=== PATIENT | male | born 1965 | race Caucasian/White ===

== ENCOUNTER 2017-11-09 22:09 | Observation (INO) | payer MEDICAID, OTHER ==
[~2017-11-09] VITALS: Ht 182.9 cm; Wt 92.0 kg
[2017-11-09] MEDS ORDERED: IOHEXOL 350 MG/ML 10 ML VIAL (for RAD DIAG) IVCONTRAST ONE (22:10)
[2017-11-09 22:16] VITALS: BP 196/105; PULSE 57; RESP 18; TEMP 97.5; O2SAT 98
[2017-11-09] MEDS ORDERED: SODIUM CHLORIDE 0.9% FLUSH 10 ML FLUSH IVF PRN (23:00)
[2017-11-09] MEDS ORDERED: SODIUM CHLORID 0.9% 500 ML INJ 500 ML IV ONE (23:00)
[2017-11-09] MEDS ORDERED: ASPIRIN 81 MG CHEW TAB PO ONE (23:00)
[2017-11-09 23:09] VITALS: BP 148/98; O2SAT 100
--- NOTE | 2017-11-09 23:22 | RADRPT ---
EXAM DATE/TIME: 11/09/2017 23:06 [facility] COMPARISON: No previous studies available for comparison. INDICATIONS : Chest pressure. MEDICAL HISTORY : Hypertension. SURGICAL HISTORY : CABG. ENCOUNTER: Initial ACUITY: 1 day PAIN SCORE: 5/10 LOCATION: Bilateral chest FINDINGS: PA and lateral views of the chest demonstrate the lungs to be symmetrically aerated without evidence of mass, infiltrate or effusion. The cardiomediastinal contours are unremarkable. Osseous structure s are intact. CONCLUSION: 1. No active disease. Postoperative median sternotomy and CABG. Crow Cazares MD on November 09, 2017 at 23:18 Board Certified Radiologist. This report was verified electronically.
[2017-11-09 23:33] LABS: AUTOMATED NEUTROPHIL # 5.4 TH/MM3 (1.8-7.7); BASOPHIL # 0.1 TH/MM3 (0-0.2); BASOPHIL % 0.7 % (0.0-2.0); EOSINOPHIL # 0.5 TH/MM3 (0-0.4); EOSINOPHIL % 4.8 % (0.0-4.0); HEMATOCRIT 41.9 % (39.0-51.0); HEMOGLOBIN 14.2 GM/DL (13.0-17.0); LYMPH % 28.9 % (9.0-44.0); LYMPHOCYTE # 2.7 TH/MM3 (1.0-4.8); MEAN CORPUSCULAR HEMOGLOBIN 28.2 PG (27.0-34.0); MEAN PLATELET VOLUME 8.4 FL (7.0-11.0); MONO % 8.1 % (0.0-8.0); MONOCYTE # 0.8 TH/MM3 (0-0.9); NEUT % 57.5 % (16.0-70.0); PLATELET COUNT 296 TH/MM3 (150-450); RED BLOOD COUNT 5.04 MIL/MM3 (4.50-5.90); RED CELL DISTRIBUTION WIDTH 15.5 % (11.6-17.2); WHITE BLOOD COUNT 9.4 TH/MM3 (4.0-11.0)
[2017-11-09 23:46] LABS: ALT (GPT) 148 U/L (12-78)
[2017-11-09 23:49] LABS: D-DIMER 0.56 MG/L FEU (0.00-0.50)
[2017-11-09 23:50] LABS: ALKALINE PHOSPHATASE 98 U/L (45-117); TOTAL BILIRUBIN ADULT 0.5 MG/DL (0.2-1.0); TOTAL PROTEIN 8.3 GM/DL (6.4-8.2); TROPONIN I LESS THAN 0.02 NG/ML (0.02-0.05)
[2017-11-09 23:55] LABS: ALBUMIN 4.2 GM/DL (3.4-5.0); AST (GOT) 61 U/L (15-37); BICARBONATE 29.7 MEQ/L (21.0-32.0); BLOOD UREA NITROGEN 12 MG/DL (7-18); CALCIUM 8.7 MG/DL (8.5-10.1); CHLORIDE 106 MEQ/L (98-107); CREATININE 1.13 MG/DL (0.60-1.30); GLOMERULAR FILTRATION RATE 68 ML/MIN (>89); GLUCOSE,RANDOM 89 MG/DL (74-106); MAGNESIUM 2.1 MG/DL (1.5-2.5); SODIUM (NA) 139 MEQ/L (136-145)
--- NOTE | 2017-11-10 00:06 | PD ---
HPI Chief Complaint: Chest Pain Time Seen by Provider: 22:46 Travel History International Travel<30 days: No Contact w/Intl Traveler<30days: No Traveled to known affect area: No History of Present Illness HPI Is a 52-year-old man presents to the emergency department complaining of pressure-like chest discomfort ongoing for the past couple days. Patient had an ME about 5 months ago, and required quadruple bypass. He has done generally well since then. He drove down is visiting from [place]. Over the past several days he knows his diastolic blood pressures been a little bit increased. Been feeling more tired and getting chest pressure when this happens. Usually more towards the end of the day. It was worse today and so he came to the emergency department. He otherwise had been feeling generally well and healthy and doing well since his CABG. History Past Medical History Narrative Medical CAD, history CABG Hypertension Hyperlipidemia Tetanus Vaccination: Unknown Influenza Vaccination: No Social History Alcohol Use: No Tobacco Use: No Allergies-Medications (Allergen,Severity, Reaction): Coded Allergies: No Known Allergies (Unverified , 11/09/17) Review of Systems Except as stated in HPI: all other systems reviewed are Neg Physical Exam Narrative GENERAL: Well-appearing 51-year-old man, no acute distress SKIN: Focused skin assessment warm/dry. HEAD: Atraumatic. Normocephalic. EYES: Pupils equal and round. No scleral icterus. No injection or drainage. ENT: No nasal bleeding or discharge. Mucous membranes pink and moist. NECK: Trachea midline. No JVD. CARDIOVASCULAR: Regular rate and rhythm. No murmur appreciated. RESPIRATORY: No accessory muscle use. Clear to auscultation. Breath sounds equal bilaterally. GASTROINTESTINAL: Abdomen soft, non-tender, nondistended. Hepatic and splenic margins not palpable. MUSCULOSKELETAL: No obvious deformities. No clubbing. No cyanosis. No edema. NEUROLOGICAL: Awake and alert. No obvious cranial nerve deficits. Motor grossly within normal limits. Normal speech. PSYCHIATRIC: Appropriate mood and affect; insight and judgment normal. Data Data Last Documented VS Vital Signs Date Time Temp Pulse Resp B/P (MAP) Pulse Ox O2 Delivery O2 Flow Rate FiO2 11/09/17 23:09 100 Room Air 11/09/17 23:09 148/98 (115) 11/09/17 22:16 97.5 57 18 Orders Orders Electrocardiogram (11/09/17:52) Complete Blood Count With Diff (11/09/17:52) Comprehensive Metabolic Panel (11/09/17:52) D-Dimer (11/09/17:) Magnesium (Mg) (11/09/17:52) Prothrombin Time / Inr (Pt) (11/09/17:52) Act Partial Throm Time (Ptt) (11/09/17:52) Troponin I (11/09/17:) Lipase (11/09/17:52) Ecg Monitoring (11/09/17:52) Bilateral Bp Monitoring (11/09/17:52) Iv Access Insert/Monitor (11/09/17:) Oximetry (11/09/17:) Oxygen Administration (11/09/17:) Aspirin Chew (Aspirin Chew) (11/09/17 23:00) Sodium Chloride 0.9% Flush (Ns Flush) (11/09/17 23:00) Sodium Chlorid 0.9% 500 Ml Inj (Ns 500 M (11/09/17 23:00) Chest, Pa & Lat (11/09/17 22:52) Ct Pulmonary Angiogram (11/10/17 ) Iohexol 350 Inj (Omnipaque 350 Inj) (11/09/17 22:10) Temazepam (Restoril) (11/10/17 01:20) Admit Order (Ed Use Only) (11/10/17 ) Activity Bed Rest With Brp (11/10/17 01:20) Vital Signs (Adult) Q4H (11/10/17 01:20) Cardiac Rhythm .As Directed (11/10/17 01:20) Notify Dr: Other .PRN (11/10/17 01:20) Notify Dr. Parameters (11/10/17 01:20) Resp Oxygen Nasal Cannula (11/10/17 ) Ckmb (Isoenzyme) Profile (11/10/17 02:30) Ckmb (Isoenzyme) Profile (11/10/17 05:30) Troponin I (11/10/17 02:30) Troponin I (11/10/17 05:30) ^ Obtain (11/10/17 01:20) Sodium Chloride 0.9% Flush (Ns Flush) (11/10/17 01:30) Sodium Chloride 0.9% Flush (Ns Flush) (11/10/17 09:00) Paver / Telemetry YAMEL.Q8H (11/10/17 01:20) Labs Laboratory Tests Test 11/09/17 23:08 White Blood Count 9.4 TH/MM3 Red Blood Count 5.04 MIL/MM3 Hemoglobin 14.2 GM/DL Hematocrit 41.9 % Mean Corpuscular Volume 83.0 FL Mean Corpuscular Hemoglobin 28.2 PG Mean Corpuscular Hemoglobin Concent 34.0 % Red Cell Distribution Width 15.5 % Platelet Count 296 TH/MM3 Mean Platelet Volume 8.4 FL Neutrophils (%) (Auto) 57.5 % Lymphocytes (%) (Auto) 28.9 % Monocytes (%) (Auto) 8.1 % Eosinophils (%) (Auto) 4.8 % Basophils (%) (Auto) 0.7 % Neutrophils # (Auto) 5.4 TH/MM3 Lymphocytes # (Auto) 2.7 TH/MM3 Monocytes # (Auto) 0.8 TH/MM3 Eosinophils # (Auto) 0.5 TH/MM3 Basophils # (Auto) 0.1 TH/MM3 CBC Comment DIFF FINAL Differential Comment Prothrombin Time 10.0 SEC Prothromb Time International Ratio 1.0 RATIO Activated Partial Thromboplast Time 24.4 SEC D-Dimer Quantitative (PE/DVT) 0.56 MG/L FEU Blood Urea Nitrogen 12 MG/DL Creatinine 1.13 MG/DL Random Glucose 89 MG/DL Total Protein 8.3 GM/DL Albumin 4.2 GM/DL Calcium Level 8.7 MG/DL Magnesium Level 2.1 MG/DL Alkaline Phosphatase 98 U/L Aspartate Amino Transf (AST/SGOT) 61 U/L Alanine Aminotransferase (ALT/SGPT) 148 U/L Total Bilirubin 0.5 MG/DL Sodium Level 139 MEQ/L Potassium Level 4.0 MEQ/L Chloride Level 106 MEQ/L Carbon Dioxide Level 29.7 MEQ/L Anion Gap 3 MEQ/L Estimat Glomerular Filtration Rate 68 ML/MIN Troponin I LESS THAN 0.02 NG/ML Lipase 183 U/L MDM Medical Decision Making Medical Screen Exam Complete: Yes Emergency Medical Condition: Yes Interpretation(s) My review of EKG: Sinus bradycardia at a rate of 56, slightly leftward axis, some anterior precordial T-wave inversions, no old for comparison. No definite evidence of acute ischemia. LABS: CBC unremarkable. CMP remarkable for mildly elevated AST and ALT. Troponin negative. Lipase normal Coags unremarkable. D-dimer 0.56 Chest x-ray: No active disease. Differential Diagnosis ACS, anxiety, angina, strain or sprain, other Narrative Course Medical decision making INITIAL calls a 52-year-old man who presents to the emergency department complaining of chest pain. Looks well. Possibly some anxiety. Recent CABG however. Recent long car trip. Will check d-dimer, troponin EKG, reassess. CLINICAL initial workup was unremarkable. D-dimer is minimally elevated. CT pulmonary exam shows no PE. Discussed staying in the chest pain center. Initially patient was agreeable but then left AMA while I was with another patient. Did not have time to speak with them before he eloped. Diagnosis Primary Impression: Left against medical advice Garcia Crawley MD Nov 10, 2017 00:06
--- NOTE | 2017-11-10 00:58 | RADRPT ---
EXAM DATE/TIME: 11/10/2017 00:33 [facility] COMPARISON: No previous studies available for comparison. INDICATIONS : Chest pain with left arm pain. IV CONTRAST: 75 cc Omnipaque 350 (iohexol) IV RADIATION DOSE: 10.93 CTDIvol (mGy) MEDICAL HISTORY : Hypertension. Cardiovascular disease SURGICAL HISTORY : CABG ENCOUNTER: Initial ACUITY: 2 days PAIN SCALE: 7/10 LOCATION: chest TECHNIQUE: Volumetric scanning of the chest was performed using a pulmonary embolism protocol MIP images were re constructed. Using automated exposure control and adjustment of the mA and/or kV according to patien t size, radiation dose was kept as low as reasonably achievable to obtain optimal diagnostic quality images. DICOM format image data is available electronically for review and comparison. Follow-up recommendations for detected pulmonary nodules are based at a minimum on nodule size and pa tient risk factors according to Fleischner Society Guidelines. FINDINGS: PULMONARY ARTERIES: No filling defects are seen in the pulmonary arteries through the segmental level. LUNGS: There is no consolidation or pneumothorax . No concerning pulmonary nodule is visualized. PLEURAE: There is no pleural thickening or pleural effusion. MEDIASTINUM: There is good visualization of the great vessels of the middle mediastinum. No evidence of mediastin al or hilar adenopathy/mass. MUSCULOSKELETAL: Within normal limits for patient age. MISCELLANEOUS: The visualized upper abdominal organs demonstrate no acute abnormality. CONCLUSION: 1. Negative for pulmonary embolus. The lungs are clear except for minimal dependent atelectasis. Prev ious median sternotomy and CABG. Crow Cazares MD on November 10, 2017 at 0:55 Board Certified Radiologist. This report was verified electronically.
[2017-11-10] MEDS ORDERED: TEMAZEPAM 15 MG CAP PO STA (01:20)
[2017-11-10] MEDS ORDERED: SODIUM CHLORIDE 0.9% FLUSH 10 ML FLUSH IV FLUSH PRN (01:30)
[2017-11-10] MEDS ORDERED: SODIUM CHLORIDE 0.9% FLUSH 10 ML FLUSH IV FLUSH SCH (09:00)
--- NOTE | 2017-11-10 12:14 | EKG ---
Date Performed: 11/09/2017 Time Performed: 22:30:56 PTAGE: 52 years EKG: SINUS BRADYCARDIA POSSIBLE LATERAL MYOCARDIAL INFARCTION ABNORMAL ECG NO PREVIOUS TRACING DOCTOR: Thierry Keene Interpretating Date/Time 11/10/2017 12:12:41
== END 2017-11-10 01:56 | disposition left against medical advice (07) ==
LOC: NEPE 22:09 → NEDA 11-10 01:24
DX: R07.9 Chest pain, unspecified (principal); Z95.1 Presence of aortocoronary bypass graft; I25.2 Old myocardial infarction; I10 Essential (primary) hypertension; E78.5 Hyperlipidemia, unspecified; I25.10 Atherosclerotic heart disease of native coronary artery without angina pectoris; R00.1 Bradycardia, unspecified
CPT/HCPCS: 71046; 71275; 80053; 83690; 83735; 84484; 85025; 85379; 85610; 85730; 93005; 96360; 99285; G0378; J7040; Q9967